=== PATIENT | female | born 1940 | race Caucasian/White ===

== ENCOUNTER → 2016-11-14 | Outpatient (CLI) | payer OTHER ==
[~2016-11-14] MED LIST: GADOBUTROL 10 ML VIAL IVP ONE
== END ==
LOC: FIMAGING 09:00
PROVIDERS: ATTEND Psychiatry & Neurology Neurology
DX: G44.89 Other headache syndrome (principal)
CPT/HCPCS: 70553; A9585

== ENCOUNTER → 2017-11-30 | Outpatient (CLI) | payer OTHER | LOC: BMCIMAGING 13:08 | PROVIDERS: ATTEND Internal Medicine Endocrinology, Diabetes & Metabolism | DX: E04.1 Nontoxic single thyroid nodule (principal) | CPT/HCPCS: 76536-PO ==

== ENCOUNTER → 2018-12-20 | Outpatient (CLI) | payer OTHER | LOC: BMCIMAGING 15:10 | PROVIDERS: ATTEND Obstetrics & Gynecology | DX: N95.0 Postmenopausal bleeding (principal); R19.09 Other intra-abdominal and pelvic swelling, mass and lump ==

== ENCOUNTER → 2019-02-22 | Day surgery (SDC) | payer OTHER ==
[~2019-02-22] MED LIST changes: +ACETAMINOPHEN 325 MG TAB PO PRN; +ALTEPLASE 2 MG VIAL IVP PRN; +FLUMAZENIL 0.5 MG/5 ML MDV IVP PRN; -GADOBUTROL 10 ML VIAL IVP ONE; +GLUCAGON HCL 1 MG VIAL IVP PRN; +HEPARIN 10,000 UNIT/10 ML MDV (1,000 UNIT/ML) IVP PRN; +LIDO/EPI 1% **for epidural** 30 ML SDV ONE; +MEPERIDINE 25 MG/ML SYR IVP PRN; +MIDAZOLAM 2 MG/2 ML VIAL IVP PRN; +MIDAZOLAM 2 MG/2 ML VIAL ONE; +NALOXONE HCL 0.4 MG/ML INJ IVP PRN; +NS 1,000 ML IV SCH; +ONDANSETRON 4 MG/2 ML VIAL IVP PRN; +PROTAMINE SULFATE 50 MG/5 ML VIAL IVP PRN; +ceFAZolin 2 GM/DEXTROSE 100 ML IV ONE; +fentaNYL 100 MCG/2 ML INJ IVP PRN
[2019-02-22 09:54] LABS: INR 1.04 (0.83-1.16); PROTIME(PATIENT) 13.2 SEC (12.0-15.0)
--- NOTE | 2019-02-22 10:06 | PDRADPRE ---
Radiology History & Physical Indication for procedure: cancer (Plan for chest port placement) Home medications: Bystolic 5 mg DAILY 02/21/19 [Last Taken 02/22/19 07:00] Allergies/Adverse Reactions: No Known Allergies Allergy (Unverified 01/26/14 13:12) Mental status: A&Ox3 Heart exam: regular rate and rhythm Lungs exam: clear to auscultation Mallampati Score: Class 3
--- NOTE | 2019-02-22 10:06 | PDPROPOC ---
Sedation Plan of Care Sedation Plan of Care: vital signs stable, mental status noted, patient educated of risks, benefits, alternatives, patient can tolerate sedation ASA Classification: ASA 2 Planned drugs: fentanyl, midazolam Mallampati Score: Class 3 Mallampati Reference Image: Patient passed 3-3-2 rule?: Yes
--- NOTE | 2019-02-22 11:09 | PDRADPN ---
Radiology Procedure Note Date of Procedure: 02/22/19 Radiologist: Michael Roche Anesthesia: IV Sedation Pre-op Diagnosis: Uterine CA Post-op Diagnosis: Uterine CA Indication: need for prison chemo central access Procedure: Chest Port placement Finding(s): Bard single lumen 8 Fr POWER PORT. Tip of catheter in proximal right atrium. Please see separately dictated radiology report for full details. Inf/Abcess present in the surg proc area at time of surgery?: No
[2019-02-22 13:04] VITALS: BP 123/70
== END | disposition home or self-care (01) ==
LOC: FIMAGING 08:50
PROVIDERS: ATTEND Internal Medicine Hematology & Oncology
DX: Z45.2 Encounter for adjustment and management of vascular access device (principal); C54.1 Malignant neoplasm of endometrium
CPT/HCPCS: 36561; 76937; 99152; C1769; J0690; J1642; J2250; J2310; J3010